=== PATIENT | male | born 1985 | race Caucasian/White ===

== ENCOUNTER 2016-12-24 08:30 | Outpatient (CLI) | payer OTHER ==
--- NOTE | 2016-12-24 10:51 | DIAGNOSTIC IMAGING REPORT ---
PROCEDURE: MR LOWER EXT JOINT WO CONT-RT INDICATION: RT KNEE PAIN TECHNIQUE: T1 and STIR sagittal, axial, coronal and coronal-oblique images. COMPARISON: Right knee x-ray 10/11/2016 FINDINGS: Chronic ACL tear. Normal posterior cruciate and collateral ligaments. Grade 1 degeneration of the medial meniscus posterior horn but no evidence of a tear. Normal lateral meniscus. Normal quadriceps and patellar tendons. Normal articular cartilage. No effusion or popliteal cyst. Normal osseous structures. IMPRESSION: 1. Chronic ACL tear.
[2017-01-27] MEDS ORDERED: OMEPRAZOLE20 M1 PO (11:50)
[2017-02-01] MEDS ORDERED: OXYCODONE/ACETA1 TA1 PO (12:17)
== END 2016-12-24 23:00 | disposition home or self-care (01) ==
LOC: MRI SRH 08:30
DX: S83.511D Sprain of anterior cruciate ligament of right knee, subsequent encounter (principal)

== ENCOUNTER 2017-01-26 12:53 | Outpatient (CLI) | payer OTHER ==
--- NOTE | 2017-01-26 13:32 | DIAGNOSTIC IMAGING REPORT ---
PROCEDURE: XR CHEST 2 VIEW INDICATION: PRE OP TECHNIQUE: PA and lateral views. COMPARISON: None. FINDINGS: Lungs are clear. Heart and mediastinum are normal. Thorax is normal. IMPRESSION: 1. Negative chest.
[2017-01-27] MEDS ORDERED: OMEPRAZOLE20 M1 PO ×2 (11:50)
== END 2017-01-26 23:00 ==
LOC: RT SRH 12:53
DX: Z01.818 Encounter for other preprocedural examination (principal); Z01.810 Encounter for preprocedural cardiovascular examination; R00.1 Bradycardia, unspecified

== ENCOUNTER 2017-02-01 06:16 | Day surgery (SDC) | payer OTHER ==
[~2017-02-01] VITALS: Ht 167.6 cm; Wt 78.5 kg
[~2017-02-01 06:16] MED LIST: OMEPRAZOLE20 M1 PO
--- NOTE | 2017-02-01 07:10 | NUR ---
PREOP INSTRUCTIONS GIVEN TO PATIENT USING THE LANGUAGE LINE FOR ALL MEDICAL AND PROCEDURAL INFORMATION. COUSIN ALSO THERE TO HELP. PATIENT VERY NERVOUS. REASSURED. CONSENT CONFIRMED. EXTREMITY MARKED BY PATIENT. PREOP MEDICATIONS GIVEN. PATIENT CONFIRMED NO MORE QUESTIONS FOR INTERPERTER, WOULD LET ME KNOW IF HE NEEDED THEM AGAIN. UNDERSTANDS SMALL AMOUNTS OF L[place] AND SPEAKS MINIMAL. KB
--- NOTE | 2017-02-01 12:01 | NUR ---
rec'd from or; spont resp. LYING ON HIS BACK WITH HOB ELEVATED 30 DEGREES.IMMOBILIZER ON AND ICE APPLIED TO OP SITE. PT AWAKE AND REPORTS CMS=GOOD.
--- NOTE | 2017-02-01 12:01 | Postoperative Progress Note ---
Postop Progress Note Preoperate Diagnosis: R ACL deficiency Postoperative Diagnosis: same Surgeon: Nhan Gan MD Anesthesia: General ETT Findings: see dictation Procedure: R ACL reconstruction with bone-patellar tendon bone autograft Complications? No Condition: Stable EBL: <50 mL Fluid(s): 1100 mL Drain(s): None Blood Administered: None Specimen(s) removed? No Grafts or Implants? Yes Graft/Implant type: Titanium interference screws Arthex 9x20 in fem, 10x30 in tibia . (See nursing notes for details of grafts/implants)
[2017-02-01] MEDS ORDERED: OXYCODONE/ACETA1 TA1 PO ×2 (12:17)
--- NOTE | 2017-02-01 12:21 | Provider's Discharge Care Plan ---
Problem, Goal, Plan Problem List 1. ACL (anterior cruciate ligament) rupture Goals: Improve function Instructions: Follow up as directed, Take meds as directed, Keep brace on. Take aspirin 325 mg 2x/day x 6 weeks. Call/return for signs infection DVT/PE
--- NOTE | 2017-02-01 12:35 | NUR ---
COUSING IN PACU AND PT FEELS MORE RELAXED WITH HIM AT BEDSIDE. PAIN LEVEL PER PT REPORT WAS 9/10. WENT DOWN TO 8/10
--- NOTE | 2017-02-01 12:45 | NUR ---
REPORTS OP SITE PAIN TO BE 7/10; CONTINUE TO GIVEN FENTANLY. DB INSTRUCTED AND PT CO-OP. CMS=GOOD.
--- NOTE | 2017-02-01 12:59 | NUR ---
ANESTHESIA HERE TALKING TO PT RE NERVE BLOCK. PT VERBALIZES UNDERSTANDING. REPORTS NAUSEA. MEDS GIVEN.
--- NOTE | 2017-02-01 13:25 | NUR ---
NERVE BLOCK EXPLAINED TO PT. HOGSHEAD HAND PRESENT. CONSENT SIGNED AND NERVE BLOCK BEGINS.
--- NOTE | 2017-02-01 13:31 | NUR ---
ABDUCTOR CANAL BLOCK COMPLETE. PT TOLERATED WELL. NO CHANGES IN HEART RATE.
--- NOTE | 2017-02-01 13:37 | NUR ---
PAIN LEVEL IS 2-3/10; NO FURTHER NAUSEA. CMS=GOOD.
--- NOTE | 2017-02-01 13:42 | DIAGNOSTIC IMAGING REPORT ---
PROCEDURE: XR KNEE 1 OR 2 VIEWS - RIGHT INDICATION: TENDON REPAIR TECHNIQUE: Intraoperative fluoroscopy was provided for performing tendon repair. Five fluoroscopic images were obtained. Total fluoro time 21 seconds, cumulative dose 1.2 mGy. COMPARISON: MRI 12/24/2016 FINDINGS: AP and lateral intraoperative fluoroscopic images of the knee demonstrate instrumentation positioning an anterior cruciate ligament graft. IMPRESSION: 1. Intraoperative fluoroscopy for ACL repair.
--- NOTE | 2017-02-01 14:38 | NUR ---
PATIENT RETURNED TO THE FLOOR AWAKE AND SLEEPY. VSS. DENIES PAIN. CMS INTACT. BRACE IN PLACE. PATIENT VOIDED PER URINAL. PO OFFERED. KB
[2017-02-01 15:02] VITALS: BP 116/72
--- NOTE | 2017-02-01 15:13 | NUR ---
MILD NAUSEA AFTER EATING CRACKERS. ZOFRAN AND PERCOCET GIVEN FOR PAIN 5/10 AND NAUSEA. VSS. APPEARS TO BE RESTING. KB
--- NOTE | 2017-02-01 16:12 | NUR ---
PATIENT BECAME NAUSEATED WITH EMESIS AFTER MOVING AROUND. STATES HE NOW FEELS BETTER AND HUNGERY. CHICKEN SOUP TOLERATED WELL. DISCHARGE INSTRUCTIONS GIVEN TO PATIENT AND HIS COUSIN ALONG WITH THE INTERPERTER. PATIENT STATES HE UNDERSTANDS AND HAS NO QUESTIONS. CRUTCHES PROVIDED. PATIENT ABLE TO AMBULATE USING THEM. DISCHARGED HOME WITH COUSIN. NICK
--- NOTE | 2017-02-01 16:16 | NUR ---
ACL DISCHARGE INSTRUCTIONS PROVIDED IN [place]. KB
--- NOTE | 2017-02-01 20:29 | OPERATIVE REPORT ---
DATE OF SURGERY: 02/01/2017 SURGEON: Nhan Gan MD DATA REDUCTION TECHNICIAN: None. PREOPERATIVE DIAGNOSIS: 1. Right anterior cruciate ligament tear POSTOPERATIVE DIAGNOSIS: 1. Right anterior cruciate ligament tear PROCEDURE PERFORMED: 1. Arthroscopic right anterior cruciate ligament reconstruction with right bone patellar tendon bone autograft and dual titanium interference screw fixation ANESTHESIA: General endotracheal. ESTIMATED BLOOD LOSS: Less than 50 mL. FLUIDS: Blood replacement: IV crystalloid fluids only. COMPLICATIONS: None apparent. CONDITION: The patient on leaving the operating room stable and satisfactory. 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 He has been unable to return to playing soccer due to knee instability and despite attempted bracing, activity modification, exercise programs, therapy, etc. He was therefore, indicated for the above-listed surgery. The MRI did not show any meniscal pathology that would require surgical attention. SURGICAL FINDINGS: Examination under anesthesia showed a positive Tomás 7 mm of translation, soft endpoint and a positive pivot shift. He also had a positive anterior drawer. He was stable to varus, valgus and posterior drawer stress test. Intra- articular findings showed no significant degenerative changes in any of the 3 compartments. The medial and lateral menisci were intact and stable, although there may have been a prior posterior horn tear of the lateral meniscus based on a stable cleft in the peripheral third. The popliteal tendon was intact. There was a drive-through sign on the lateral compartment. The anterior cruciate ligament was seen to be detached from the insertion on the lateral wall of the intercondylar notch and balled up in front of the posterior cruciate ligament, which appeared normal. After reconstruction with the bone patellar tendon bone autograft, the ligament reconstruction was seen to carry tension nicely, did not impinge in the intercondylar notch, even in full extension and the Tomás and pivot shift were restored to normal with only a 2 mm translation, a firm endpoint on Tomás and no elicitable pivot shift. Postoperative plan: The patient will be weightbearing as tolerated. He is in a hinged knee brace at 0-30 degrees. As his range of motion returns, he should advance the flexion stop. He should return to clinic for referral to physical therapy and wound check next week. Further instructions will be given at that time. He should take aspirin 325 mg twice daily for 6 weeks for thromboembolic prophylaxis. Pain management will be with Percocet. Should call or return for any signs of infection or thromboembolic disease. SURGICAL TECHNIQUE: The patient was identified in the preoperative holding area. He was brought back to the operating room after he denied any interval change in his medical condition and preoperative studies were reviewed. I marked his site with his consent. General endotracheal anesthesia was administered. Two grams of cefazolin were given intravenously for antibiotic prophylaxis. The knee was examined under anesthesia with the above-noted findings. Bump was placed behind the right hip and transversely across the foot of the table on the right side so that the knee could be kept in 90 degrees of flexion and [id number] position when needed. Tourniquet was fit high on the right thigh about stockinette and isolated off with plastic antiadhesive barrier U drapes. Surgical pause was completed, confirming the correct patient, operative site, procedure, appropriate available instruments and implants, everyone in the room including surgical nursing and anesthetic team members were in agreement that we should proceed. We confirmed that he had received his perioperative antibiotics as described above. The nonoperative leg was fit with a pneumatic compression device for thromboembolic prophylaxis and it was connected. We also reviewed his allergies and identity and confirmed the operative site. The leg was then circumferentially prepped with ChloraPrep and the tourniquet to the tips of the toes in a sterile fashion, draped free in a waterproof sterile fashion for surgery. An incision was made along the medial border of the patellar tendon extending up over the inferior patella and down over the tibial tubercle. It was carried sharply through skin and dermis, traversing veins were cauterized. The patellar tendon sheath was entered. The patellar tendon measured 36 mm in width, the central 12 mm was harvested using mosquito hemostats to split the tendon in line with its fibers. Oscillating saw was used to harvest a triangular bone plug from the distal anterior patella and the rectangular bone plug from the proximal tibial tubercle. The graft was then brought to the back table and measured to be 100 mm in overall length with the femoral bone plug of 25 mm and tibial bone plug 40 mm. The femoral bone plug was fashioned to fit through a 10 mm tunnel and the tibia through an 11 mm tunnel. Each bone plug was fit with a # 2 and a #5 FiberWire through 2 mm drill holes and the bone plug was then kept moist. His bone removed from the bone plugs during preparation of the graft was saved for subsequent bone grafting of the patellar donor site. Once the graft was prepared, the knee was inflated with 0.25% Marcaine with epinephrine and an anterolateral arthroscope portal was established with superomedial outflow portal and the arthroscope was introduced into the suprapatellar space. The knee was systematically examined with the above-noted intra-articular findings. The quadriceps tendon was seen to be intact. There were no loose bodies identified. The patellar articular cartilage in the femoral trochlea was pristine. The medial gutter was free of loose bodies. The medial meniscus was intact and stable. The intercondylar notch showed evidence of a chronically ruptured anterior cruciate ligament off of the femoral attachment. Posterior cruciate was intact. The lateral meniscus was intact. There was a drive-through sign in the lateral compartment. There were no loose bodies visualized in the posterior recesses of the knee through the drive-through sign. The popliteus tendon was seen to be intact. The lateral meniscus, as the medial meniscus, were both stable to probe and tested with a nerve hook. The lateral gutter was then entered and seen to be free of loose bodies, including the popliteal tendon sheath. The remnants of the anterior cruciate ligament were then removed with a combination of heydi and radiofrequency ablation probe. A notchplasty was performed with a round bur. We made sure we could see the [id number] region and the residence ridge was removed. The superior surface of the notch was also relieved to prevent impingement in full extension of the graft. The PCL referencing anterior cruciate ligament drill guide was then inserted through the anteromedial portal, which had been established under spinal needle guidance upon entering the medial compartment and a guide pin was advanced up into the footprint of the tibial insertion of the anterior cruciate ligament and confirmed to be in appropriate position on AP and lateral C-arm imaging. An 11 mm reamer was then used to create the tibial tunnel and a curved rasp used to smooth and chamfer the posterior edge of that tunnel. Next, the knee was extended in such a position that the 6 mm offset over the top referencing guide could be placed to access the femoral socket point. The Beath pin was then driven through the tibial tunnel and the [id number] guide and into the distal femur and then out through the lateral cortex of the distal femur and retrieved through the skin with a Love clamp. The gold handled yoni was attached and C-arm was brought in to confirm the appropriate position of the femoral guide pin. Once this was confirmed to be acceptable, a 10 mm Roosevelt reamer was inserted over the Beath pin and the socket was drilled to 25 mm at the anterior bone edge and 30 mm at the posterior edge. We did not make the socket deeper than this because it appeared that the guide pin approached the posterior end ostial cortex of the femur beyond that point. Next, the event producer was used to make a pathway for the Nitinol guidewire for the femoral interference screw and the graft was then delivered into the knee using the Beath pin and a nerve hook to guide the femoral plug into the socket. It was a pulled stoutly into the socket and reached a butt end point. We confirmed that the bone plug was fully contained within the socket and we had drilled this socket at roughly 10:30 on the clock face to prevent the graft being too vertical or too horizontal. The Nitinol guidewire was then placed into position in front of the graft and a 9 mm diameter x 20 mm long round headed sheath titanium interference screw was used to secure the femoral bone plug. This was tested and found to be secure. Next, the knee was placed at 20 degrees of flexion and a reverse Tomás force applied. The graft was tensioned and the guide pin placed behind the tibial bone plug and a 10 mm diameter x 40 mm long fully threaded titanium interference screw was placed. It obtained excellent purchase. Its final position was adjusted under lateral C-arm fluoroscopy imaging. Final AP and lateral images were obtained including a lateral image in full extension. We then visualized the graft arthroscopically and made sure there was no impingement and that the graft appeared to carry tension and was well fixed. The knee was examined under anesthesia and the Tomás was reduced to less than 2 mm with a firm endpoint and the pivot shift was eliminated. C-arm was dismissed and the portion of the tibial bone plug that was prominent was shaved down with an oscillating saw. The retrieved bone from the graft preparation and tibial bone plug shaving was then morselized and impacted into the irrigated anterior knee wound, which was further infiltrated with 0.25% Marcaine with epinephrine and additional 0.25% Marcaine with epinephrine was instilled into the knee joint proper. The wounds were closed with [id number] 2-0 Vicryl for the patellar tendon sheath, making sure not to close the gap on the patellar tendon, inverted undyed 2-0 Vicryl for the subdermal suture and 3-0 vertical mattress nylon sutures for the skin. The tibial incision for the graft entry site was closed with inverted undyed 2-0 subdermal sutures and 3-0 vertical mattress nylon sutures for the skin. The portals were closed with 3-0 nylon mattress sutures as well. Xeroform, 4 x 4's, ABD, Kerlix, and Eduardo wraps comprised the dressing, a knee brace was applied, set for range of motion from full extension to 30 degrees of flexion. The patient was undraped, reversed from anesthesia and brought to the recovery room in stable and satisfactory condition having tolerated the procedure well without apparent complication. All sponge, needle and instrument counts were reported correct prior to leaving the operating room.
== END 2017-02-01 16:17 | disposition home or self-care (01) ==
LOC: OR SRH 06:16 → SCU SRH 06:28 → OR SRH 07:30
PROVIDERS: Orthopaedic Surgery
PROC: 0QUB07Z Supplement Right Lower Femur with Autologous Tissue Substitute, Open Approach (ICD-10-PCS; principal; 2017-02-01 07:30)
PROC: 0QBG0ZZ Excision of Right Tibia, Open Approach (ICD-10-PCS; principal; 2017-02-01 07:30)
PROC: 0SBC4ZZ Excision of Right Knee Joint, Percutaneous Endoscopic Approach (ICD-10-PCS; principal; 2017-02-01 07:30)
PROC: 0MUN47Z Supplement Right Knee Bursa and Ligament with Autologous Tissue Substitute, Percutaneous Endoscopic Approach (ICD-10-PCS; principal; 2017-02-01 07:30)
DX: S83.511A Sprain of anterior cruciate ligament of right knee, initial encounter (principal); X58.XXXA Exposure to other specified factors, initial encounter; Z72.0 Tobacco use